=== PATIENT | male | born 1985 | race African-American/Black ===

== ENCOUNTER 2023-10-20 22:53 | Emergency (ER) | payer OTHER ==
[~2023-10-20] VITALS: Ht 182.9 cm; Wt 87.3 kg
[~2023-10-20 22:53] MED LIST: NOCURR
[2023-10-20 23:06] VITALS: TEMP 97.4
[2023-10-21] VITALS: BP 127/68; PULSE 68; RESP 16
== END 2023-10-21 00:54 | disposition home or self-care (01) ==
LOC: EMS 22:58
DX: S02.609A Fracture of mandible, unspecified, initial encounter for closed fracture (principal); F17.210 Nicotine dependence, cigarettes, uncomplicated; W50.0XXA Accidental hit or strike by another person, initial encounter; Y93.67 Activity, basketball; Y92.149 Unspecified place in prison as the place of occurrence of the external cause; Y99.8 Other external cause status
CPT/HCPCS: 70110; 99283